=== PATIENT | female | born 1935 | race Caucasian/White ===

== ENCOUNTER 2016-09-29 14:58 | Emergency (ER) | payer MEDICARE, BC ==
[~2016-09-29] VITALS: Ht 157.5 cm; Wt 63.6 kg
[~2016-09-29 14:58] MED LIST: ASPI325T6; ASPIRIN E.C. 8181 MG PO; CARDI-OMEGA1000 MG PO; CENTRUM SILVER1 CTB PO; CLARITIN 1010 MG/TAB PO; COMBIRESP IH; FLOVENT DI50 MCG/Act IH; FOSAMAX 70MG TA70 MG PO; HCTZ 25MG TAB25 MG PO; LEVOXYL0.05 MG PO; MILK OF MA400 MG/52; NATURE'S BLEND M3 MG PO; NORCO 325 MG-7.1 TAB PO; ROXICODONE 55 MG/TAB PO; SENOKOT S 50 MG1 TAB PO; SYNTHROID0.05 MG/TA PO; TYLENOL 500MG500 MG PO; VITAMIN C500 MG PO; VITAMIN D1000 IU PO; ZOCOR 20MG20 MG PO; ZYLOPRIM 100MG100 MG PO
[2016-09-29 15:01] VITALS: TEMP 98
[2016-09-29] MEDS ORDERED: TYLENOL 500MG500 MG PO (15:52)
[2016-09-29 15:59] LABS: BASO % 0.4 % (0.0-2.0); EOS # 0.1 (0.0-0.7); GRAN # 3.9 (1.4-6.5); GRAN % 55.4 % (42.2-75.2); HEMATOCRIT 38.7 % (37.0-47.0); HEMOGLOBIN 13.2 g/dl (12.5-16.0); LYMPH # 2.3 (1.2-3.4); LYMPH % 33.3 % (20.0-51.0); MEAN CELL VOLUME 94 fl (80.0-100.0); MEAN CORPUSCULAR HEMOGLOBIN 32 pg (27.0-31.0); MEAN CORPUSCULAR HGB CONC 34 g/dl (33.0-37.0); MONO # 0.7 (0.1-0.6); MONO % 9.5 % (1.7-9.3); PLATELET COUNT 263 K/mm3 (130-400); RED BLOOD COUNT 4.11 M/mm3 (4.10-5.30); REDCELL DISTRIBUTION WIDTH-CV 13.2 % (11.5-14.5)
[2016-09-29 16:06] LABS: ADJUSTED CALCIUM 10.8 mg/dL (8.4-10.2); ALBUMIN 4.7 gm/dL (3.5-5.0); BILIRUBIN,TOTAL 1.1 mg/dL (0.0-1.0); CALCIUM 11.4 mg/dL (8.4-10.2); CREATININE, serum 0.96 mg/dL (0.52-1.25); TOTAL PROTEIN 8.1 gm/dL (6.4-8.2)
[2016-09-29 16:09] LABS: POTASSIUM 2.9 mmol/L (3.4-5.0)
[2016-09-29 16:12] LABS: B-TYPE NATRIURETIC PEPTIDE 157 pg/mL (0-450)
[2016-09-29 16:16] LABS: TROPONIN-I < 0.012 ng/mL (0.000-0.034)
[2016-09-29 16:23] LABS: MAGNESIUM 1.7 mg/dL (1.6-2.3)
[2016-09-29 16:30] LABS: PH 8 (5-8); SQUAMOUS EPITHELIAL None Seen /hpf; URINE APPEARANCE Clear; URINE BACTERIA None Seen /hpf; URINE BILIRUBIN Negative (NEGATIVE); URINE BLOOD Negative (NEGATIVE); URINE COLOR Straw; URINE GLUCOSE Negative (NEGATIVE); URINE KETONE Negative (NEGATIVE); URINE RBC 0-2 /hpf; URINE UROBILINOGEN Negative (NEGATIVE); URINE WBC 0-2 /hpf
[2016-09-29] MEDS ORDERED: K-DUR 10 MEQ T10 MEQ PO (18:19)
[2016-09-29 19:00] VITALS: BP 148/74; PULSE 80
== END 2016-09-29 19:02 | disposition home or self-care (01) ==
LOC: COL.ER 14:58
PROVIDERS: Emergency Medicine
DX: R00.2 Palpitations (principal); E87.6 Hypokalemia; I10 Essential (primary) hypertension
CPT/HCPCS: J3475

== ENCOUNTER 2018-03-13 13:00 | Outpatient (RCR) | payer MEDICARE, BC ==
[~2018-03-13 13:00] MED LIST changes: +K-DUR 10 MEQ T10 MEQ PO
== END 2018-03-15 10:46 | disposition home or self-care (01) ==
LOC: WSPT 13:00
DX: R26.89 Other abnormalities of gait and mobility (principal)
CPT/HCPCS: G8978-GP; G8979-GP

== ENCOUNTER → 2019-01-19 | Outpatient (CLI) | payer MEDICARE, BC | LOC: COL.RAD 13:00 | DX: M17.12 Unilateral primary osteoarthritis, left knee (principal) | CPT/HCPCS: J3301; Q9967 ==